=== PATIENT | male | born 1980 | race American Indian/Alaskan Native ===

== ENCOUNTER 2017-12-18 14:26 | Emergency (ER) | payer MEDICAID ==
--- NOTE | 2017-12-18 14:49 | Emergency Department Report ---
ED Lower Extremity HPI - General Chief Complaint: Urogenital-Male Stated Complaint: LEG PAIN Time Seen by Provider: 12/18/17 14:44 Source: patient Mode of arrival: Ambulatory Limitations: No Limitations - History of Present Illness Initial Comments: Pt states he believes he pulled a muscle in his groin while moving from his truck to a smaller vehicle. Denies testicular pain, nausea, vomiting, abdominal pain. Pain radiates from R groin to thigh with movement, improving with rest. Complaint: hip injury -: Gradual, days(s) Injury: Hip: Right Type of Injury: unknown Place: work Severity: moderate Severity scale (0 -10): 5 Improves With: rest Worsens With: movement Associated Symptoms: ambulatory. denies: swelling, numbness, tingling, unable to bear weight - Related Data Previous Rx's Medication Instructions Recorded Last Taken Type Cyclobenzaprine [Flexeril] 10 mg PO TID PRN #15 tablet 12/18/17 Unknown Rx Ibuprofen [Motrin] 800 mg PO Q8HR PRN #21 tablet 12/18/17 Unknown Rx Allergies Allergy/AdvReac Type Severity Reaction Status Date / Time No Known Allergies Allergy Unverified 12/18/17 14:37 ED Review of Systems ROS: Stated complaint: LEG PAIN Other details as noted in HPI Comment: All other systems reviewed and negative Constitutional: denies: chills, fever Eyes: denies: eye pain, eye discharge, vision change ENT: denies: ear pain, throat pain Respiratory: denies: cough, shortness of breath, wheezing Cardiovascular: denies: chest pain, palpitations Endocrine: no symptoms reported Gastrointestinal: denies: abdominal pain, nausea, diarrhea Genitourinary: denies: urgency, dysuria Musculoskeletal: as per HPI. denies: back pain, joint swelling, arthralgia Skin: denies: rash, lesions Neurological: denies: headache, weakness, paresthesias Psychiatric: denies: anxiety, depression Hematological/Lymphatic: denies: easy bleeding, easy bruising ED Past Medical Hx - Past Medical History Hx Hypertension: Yes Hx Diabetes: Yes - Surgical History Past Surgical History?: No - Social History Smoking Status: Never Smoker Substance Use Type: None - Medications Home Medications: Home Medications Medication Instructions Recorded Confirmed Last Taken Type Cyclobenzaprine [Flexeril] 10 mg PO TID PRN #15 tablet 12/18/17 Unknown Rx Ibuprofen [Motrin] 800 mg PO Q8HR PRN #21 tablet 12/18/17 Unknown Rx ED Physical Exam - General Limitations: No Limitations General appearance: alert, in no apparent distress - Head Head exam: Present: atraumatic, normocephalic - Eye Eye exam: Present: normal appearance - ENT ENT exam: Present: mucous membranes moist - Neck Neck exam: Present: normal inspection - Respiratory Respiratory exam: Present: normal lung sounds bilaterally. Absent: respiratory distress - Cardiovascular Cardiovascular Exam: Present: regular rate, normal rhythm. Absent: systolic murmur, diastolic murmur, rubs, gallop - GI/Abdominal GI/Abdominal exam: Present: soft, normal bowel sounds. Absent: distended, tenderness, guarding - Rectal Rectal exam: Present: deferred - Extremities Exam Extremities exam: Present: normal inspection - Expanded Lower Extremity Exam Right Hip exam: Present: normal inspection, full ROM (pain with internal/external rotation), tenderness (mild R groin with palpation and movement). Absent: swelling, deformity Upper Leg exam: Present: normal inspection, full ROM. Absent: swelling Knee exam: Present: normal inspection, full ROM Lower Leg exam: Present: normal inspection, full ROM. Absent: tenderness, swelling Neuro vascular tendon exam: Present: no vascular compromise. Absent: motor deficit, sensory deficit Gait: Positive: observed and normal - Back Exam Back exam: Present: normal inspection - Neurological Exam Neurological exam: Present: alert, oriented X3, reflexes normal. Absent: motor sensory deficit - Psychiatric Psychiatric exam: Present: normal affect, normal mood - Skin Skin exam: Present: warm, dry, intact, normal color. Absent: rash ED Course Vital Signs 12/18/17 14:33 Temperature 98.2 F Pulse Rate 108 H Respiratory 16 Rate O2 Sat by Pulse 98 Oximetry - Reevaluation(s) Reevaluation #1: 12/18/17 14:48 Pt stable for d/c. ED Lower Extremity MDM - Medical Decision Making Pt presents with R groin pain with movement. No hernia or other abnormality on exam, pain reproducible with movement. Follow up given. - Differential Diagnosis strain, spasms, hernia, dvt unlikely Critical care attestation.: If time is entered above; I have spent that time in minutes in the direct care of this critically ill patient, excluding procedure time. ED Disposition Clinical Impression: Strain of muscle of right groin region Disposition: DC- TO HOME OR SELFCARE Is pt being admited?: No Condition: Good Instructions: Muscle Strain (ED) Prescriptions: Cyclobenzaprine [Flexeril] 10 mg PO TID PRN #15 tablet PRN Reason: Muscle Spasm Ibuprofen [Motrin] 800 mg PO Q8HR PRN #21 tablet PRN Reason: Pain Time of Disposition: 14:49
== END 2017-12-18 15:19 | disposition home or self-care (01) ==
LOC: ED 14:26
DX: S39.011A Strain of muscle, fascia and tendon of abdomen, initial encounter (principal); I10 Essential (primary) hypertension; E11.9 Type 2 diabetes mellitus without complications; X50.9XXA Other and unspecified overexertion or strenuous movements or postures, initial encounter; Y93.89 Activity, other specified; Y92.89 Other specified places as the place of occurrence of the external cause; Y99.8 Other external cause status
CPT/HCPCS: 99282